=== PATIENT | female | born 1980 | race American Indian/Alaskan Native ===

== ENCOUNTER 2016-04-10 12:42 | Outpatient (CLI) | payer MEDICAID ==
[2016-04-10 14:04] VITALS: BP 117/75
[2016-04-10] MEDS ORDERED: VISTARIL PO PRN (17:03)
--- NOTE | 2016-04-11 07:38 | Ultrasound Report ---
BIOPHYSICAL PROFILE: History: well being. Technique: Transabdominal ultrasound with Doppler interrogation. 2 - breathing movements 2 - movements 2 - posture and tone 2 - Qualitative amniotic fluid volume 8 - TOTAL SCORE OF POSSIBLE 8 Heart Rate (bpm) 141
== END 2016-04-10 17:20 | disposition home or self-care (01) ==
LOC: TRG 12:42
PROVIDERS: ATTEND Obstetrics & Gynecology
DX: O48.0 Post-term pregnancy (principal); Z3A.41 41 weeks gestation of pregnancy
CPT/HCPCS: 59025; 76819; Q0177